=== PATIENT | female | born 1990 | race Caucasian/White ===

== ENCOUNTER 2019-03-30 06:06 | Inpatient (IN) | payer OTHER ==
[2019-05-30 11:37] LABS: HEMATOCRIT 38.2 % (36.0-47.0); MEAN CORPUSCULAR HEMOGLOBIN 28.3 pg (27.0-33.4); MEAN CORPUSCULAR HGB CONC 34.1 g/dL (32.0-36.0); MEAN CORPUSCULAR VOLUME 83 fl (80-97); PLATELET COUNT 187 10^3/uL (150-450); RED BLOOD COUNT 4.59 10^6/uL (3.72-5.28); WHITE BLOOD COUNT 10.4 10^3/uL (4.0-10.5)
[2019-05-30 11:51] LABS: APPEARANCE,URINE SLIGHTLY-CLOUDY; BILIRUBIN,URINE NEGATIVE (NEGATIVE); COLOR,URINE YELLOW; GLUCOSE, URINE NEGATIVE (NEGATIVE); KETONES,URINE NEGATIVE (NEGATIVE); LEUKOCYTE ESTERASE,URINE NEGATIVE (NEGATIVE); NITRITE,URINE NEGATIVE (NEGATIVE); PROTEIN,URINE NEGATIVE (NEGATIVE); URINE SPECIFIC GRAVITY 1.016; UROBILINOGEN,URINE NEGATIVE mg/dL (<2.0)
[2019-05-30 11:58] LABS: ABSOLUTE LYMPHOCYTES# (MANUAL) 1.5 10^3/uL (0.5-4.7); ABSOLUTE MONOCYTES # (MANUAL) 0.6 10^3/uL (0.1-1.4); BAND NEUTROPHILS % (MANUAL) 2 % (3-5); BASOPHILS % (MANUAL) 0 % (0-2); EOSINOPHILS % (MANUAL) 0 % (0-6); LYMPHOCYTES % (MANUAL) 12 % (13-45); METAMYELOCYTES % (MANUAL) 2 % (0-1); MONOCYTES % (MANUAL) 6 % (3-13); NUCLEATED RED BLOOD CELLS 1 /100 WBC (0); SEGMENTED NEUTROPHILS % (MAN) 76 % (42-78); TOTAL CELLS COUNTED 100
[2019-05-30 11:59] LABS: ANISOCYTOSIS SLIGHT; PLATELET COMMENT ADEQUATE; PLATELET GIANT PRESENT; PLATELET LARGE PRESENT; POLYCHROMASIA SLIGHT
[2019-05-30 12:13] LABS: URINE AMPHETAMINES SCREEN NEGATIVE; URINE BARBITURATES SCREEN NEGATIVE; URINE BENZODIAZEPINES SCREEN NEGATIVE; URINE COCAINE SCREEN NEGATIVE; URINE MARIJUANA (THC) SCREEN NEGATIVE; URINE METHADONE SCREEN NEGATIVE; URINE PHENCYCLIDINE SCREEN NEGATIVE
[2019-05-31] MEDS ORDERED: CEFAZOLIN SODIUM 2 GM in DEXTROSE 5%-WATER 100 ML IV PRN (05:00)
[2019-05-31] MEDS: LACTATED RINGERS 1000 ML IV PRN ×2 (06:19→15:09)
[2019-05-31] MEDS ORDERED: OXYTOCIN/NORMAL SALINE 40 UNIT/2,000 ML RTUINJ ONE (07:07)
[2019-05-31] MEDS ORDERED: FENTANYL CITRATE INJ/PF 100 MCG/2 ML AMPUL ONE (07:07)
[2019-05-31] MEDS ORDERED: CITRIC ACID/SODIUM CITRATE ORAL SOLN 15 ML UDCUP ONE (07:07)
[2019-05-31] MEDS ORDERED: PROPOFOL INJ 200 MG/20 ML VIAL IV ONE (07:07)
[2019-05-31] MEDS ORDERED: MIDAZOLAM 2 MG/2 ML INJ ONE (07:07)
[2019-05-31] MEDS ORDERED: OXYTOCIN 10 UNIT/ML VIAL ONE (07:07)
[2019-05-31] MEDS ORDERED: EPHEDRINE SULFATE INJ 50 MG/1 ML AMPULE ONE (07:08)
[2019-05-31] MEDS ORDERED: KETAMINE HCL INJ 500 MG/10 ML VIAL ONE (08:40)
[2019-05-31] MEDS ORDERED: MEASLES,MUMPS&RUBELLA VACC/PF 0.5 ML VIAL SUBCUT PRN (09:10)
[2019-05-31] MEDS ORDERED: SIMETHICONE 80 MG TAB.CHEW PO PRN (09:10)
[2019-05-31] MEDS ORDERED: ACETAMINOPHEN 325 MG TABLET PO PRN (09:10)
[2019-05-31] MEDS ORDERED: DIPH/PERTUSS(ACELL)/TETANUS VAC/PF 0.5 ML SYR (>=10YO) IM PRN (09:10)
[2019-05-31] MEDS ORDERED: OXYCODONE-ACETAMINOPHEN 5-325 MG TABLET PO PRN (09:10)
[2019-05-31] MEDS ORDERED: PROMETHAZINE HCL INJ 25 MG/1 ML VIAL IV PRN ×3 (09:10→09:24)
[2019-05-31] MEDS ORDERED: OXYTOCIN/NORMAL SALINE 20 UNIT/1,000 ML RTUINJ IV PRN (09:10)
--- NOTE | 2019-05-31 09:13 | PDOC DELIVERY SUMMARY ---
Delivery Summary - Maternal Hx : II Hx # Term Pregnancies: 1 DANIEL: 06/06/19 Gestational Age: 39.1 Ruptured Membranes: AROM Time of Rupture: 08:22 Fluids: Clear - Delivery Presentation: Vertex Support Person Present: Yes Location: OR : Scheduled Placenta: Within Normal Limits Delivery of Placenta Date: 05/31/19 Delivery of Placenta Time: 08:23 - Medications Type of Anesthesia:: Spinal - Assess and Care Baby 1 Delivery of Date: 05/31/19 Delivery of Time: 08:22 at 1 minute: 8 at 5 minutes: 9 Preprinted Number On Band: [id number] Skin to Skin: No [facility] Personnel Nursery RN: GREGOR FISH MD: BRITTANEY PEREIRA
--- NOTE | 2019-05-31 09:23 | Operative Report ---
Operative Report DATE OF SURGERY: 05/31/19 Operative Report: Repeat Section PREOPERATIVE DIAGNOSIS: Intrauterine at 39.1 wks EGA. History prior delivery x1 POSTOPERATIVE DIAGNOSIS: Same as above OPERATION: Repeat section SURGEON: BRITTANEY PEREIRA ANESTHESIA: Spinal COMPLICATIONS: None ESTIMATED BLOOD LOSS: 600ml QUANTITATIVE BLOOD LOSS: 600 INTRAOPERATIVE FINDINGS: Normal appearing uterus, bilateral fallopian tubes and ovaries. Small amount of scar tissue lower uterine segement with bladder. Clear amniotic fluid, large amount. PROCEDURE: IV fluids: per anesthesia record Urinary output: 150 cc Disposition: To recovery room in stable condition Description of procedure: The patient was taken to the operating room and spinal anesthesia was administered and found to be adequate. She was then placed on the OR table in th e supine position with a slight leftward tilt. Patient was prepped and draped in usual sterile fashion. Ancef 2 gms was given IV prior to the procedure for infection prophylaxis. Timeout was taken. A Pfannenstiel skin incision was then made approximately 3 cm above the pubic symphysis -at the level of prior scar and carried down to level the rectus fascia. The rectus fascia was then nicked in the midline with a scalpel and the fascial incision was extended laterally with use of curved Kothari scissors. The rectus fascia was then grasped with 2 Kocker clamps elevated and the underlying rectus muscle was dissected off both bluntly and sharply. Any bleeding controlled with cautery. The rectus muscles were then split in the midline and the peritoneum was entered. The peritoneal incision was then extended by manually stretching the peritoneum. The bladder blade was positioned. The bladder was adherent to the anterior lower uterine segment. Pick ups and metzenbaum scissors were used to dissect the bladder out of harms way. The bladder blade was repositioned. A scalpel was then used in the lower uterine for the hysterotomy, slowly until amniotomy was obtained a large amount of fluid was noted. The uterine incision was then manually stretched. The infant was noted to be in vertex postion. The head was elevated and brought to the hysterotomy incision. The head then delivered with minmal difficulty. The shoulders and the rest of the body followed immediately. The cord clamping was delayed for 30 seconds as infant was vigorous. The cord was then doubly clamped, cut and the infant was handed off to the nurse awaiting. Infant was crying prior to hand off. The placenta was manually delivered. Using a lap gauze the uterus was cleared of all clots and debris. . The uterus was then exteriorized and a bladder blade was repositioned. The uterine incision was then closed with 0 Chromic suture in a running locked fashion. A second layer of the same suture was used in a runn ing locked embricated fashion. The uterine incision was inspected and noted to be hemostatic. The posterior aspect of the uterus was then inspected and anatomy was seen as above. The uterus was returned to its normal anatomic position within the abdominal cavity. Warm saline irrigation was used to clear all clots and debris from the abdomen. The uterine incision was inspected once more and noted to remain hemostatic. The bladder blade was removed and the peritoneum was closed with 2-0 chromic in a running fashion. The rectus muscles were then reapproximated and the rectus fascia was closed with a #0 PDS in a running fashion. The subcutaneous tissue was then inspected and any bleeding was controlled with Bovie electrocautery. The subcutaneous tissue was then closed with 2-0 Plain Gut suture in a running fashion. The skin was then closed with 3-0 Monocryl in a running subcuticular fashion. The skin incision was then clean dried and Dermabond was applied over the skin incision. All instrument sponge and needle counts were correct x3 for the procedure the patient tolerated the procedure well. She will proceed to recovery room in stable condition
[2019-05-31] MEDS ORDERED: FENTANYL CITRATE INJ/PF 100 MCG/2 ML AMPUL IV PRN ×3 (09:24)
[2019-05-31] MEDS ORDERED: DIPHENHYDRAMINE HCL 50 MG/ML VIAL IV PRN (09:24)
[2019-05-31] MEDS ORDERED: MEPERIDINE HCL/PF INJ 25 MG/1 ML DISP.SYRIN IV PRN (09:24)
[2019-05-31] MEDS ORDERED: ONDANSETRON HCL INJ/PF 4 MG/2 ML SDV IV PRN (09:24)
[2019-05-31] MEDS ORDERED: HYDROMORPHONE HCL INJ/PF 2 MG/ML AMPULE IV PRN (09:25)
[2019-05-31] MEDS ORDERED: MEPERIDINE HCL/PF INJ 25 MG/1 ML DISP.SYRIN ONE (09:29)
[2019-05-31] MEDS ORDERED: DIPHENHYDRAMINE HCL 50 MG/ML VIAL ONE (09:33)
[2019-05-31] MEDS ORDERED: HYDROMORPHONE HCL INJ/PF 2 MG/ML AMPULE ONE (10:09)
[2019-05-31] MEDS: HYDROMORPHONE HCL INJ/PF 2 MG/ML AMPULE IV PRN ×2 (10:22→13:36)
[2019-05-31] MEDS ORDERED: KETOROLAC TROMETHAMINE 60 MG/2 ML SDV ONE (13:11)
[2019-05-31] MEDS ORDERED: ONDANSETRON HCL INJ/PF 4 MG/2 ML SDV ONE (13:11)
[2019-05-31] MEDS ORDERED: PHENYLEPHRINE HCL INJ/PF 10 MG/1 ML SDV ONE (13:11)
[2019-05-31] MEDS: OXYCODONE-ACETAMINOPHEN 5-325 MG TABLET PO PRN ×2 (15:32→23:40)
[2019-05-31] MEDS: DOCUSATE SODIUM 100 MG CAPSULE PO SCH (17:07)
[2019-05-31] MEDS: IBUPROFEN 800 MG TABLET PO SCH (21:11)
[2019-06-01] MEDS: OXYCODONE-ACETAMINOPHEN 5-325 MG TABLET PO PRN ×5 (04:03→21:42)
[2019-06-01] MEDS: IBUPROFEN 800 MG TABLET PO SCH ×3 (05:33→21:41)
[2019-06-01 07:17] LABS: HEMATOCRIT 30.7 % (36.0-47.0); MEAN CORPUSCULAR HEMOGLOBIN 28.6 pg (27.0-33.4); MEAN CORPUSCULAR HGB CONC 34.5 g/dL (32.0-36.0); MEAN CORPUSCULAR VOLUME 83 fl (80-97); PLATELET COUNT 162 10^3/uL (150-450); RED BLOOD COUNT 3.71 10^6/uL (3.72-5.28); RED CELL DISTRIBUTION WIDTH 14.4 % (11.5-14.0); WHITE BLOOD COUNT 13.7 10^3/uL (4.0-10.5)
[2019-06-01 07:21] LABS: HEMOGLOBIN 10.6 g/dL (12.0-15.5)
--- NOTE | 2019-06-01 08:57 | PDOC PROGRESS REPORT ---
Subjective-OB Progress Note for:: 06/01/19 Physical Exam (OB) Vital Signs: Temp Pulse Resp BP Pulse Ox 98.2 F 99 14 104/65 95 06/01/19 08:04 06/01/19 08:04 06/01/19 08:04 06/01/19 08:04 06/01/19 08:04 Intake & Output 05/31/19 06/01/19 06/02/19 06:59 06:59 06:59 Intake Total 883 Output Total 1800 Balance -917 Weight 80.286 kg - PIH/Pre-Eclampsia Clonus: Negative Headache: Absent Epigastric Pain: No Visual Changes: No - Dressing Removed: No - no dsg on open to air Incision: Well Approximated Closure Type: Surgical Glue - Lochia Lochia Amount: Scant < 10 ml Lochia Color: Rubra/Red - Abdomen Description: Soft Hernia Present: No Bowel Sounds: Normoactive Flatus Presence: Present Stool: No Fundal Description: Firm Fundal Height: u/u - u/2 Objective-Diagnostic Laboratory: 06/01/19 06:49 06/01/19 06:49 WBC 13.7 H RBC 3.71 L Hgb 10.6 L D Hct 30.7 L MCV 83 MCH 28.6 MCHC 34.5 RDW 14.4 H Plt Count 162
[2019-06-01] MEDS: DOCUSATE SODIUM 100 MG CAPSULE PO SCH ×2 (09:01→17:18)
[2019-06-01] MEDS: PRENATAL VITAMIN W DHA CAPSULE PO SCH (09:01)
[2019-06-01] MEDS ORDERED: DIPHENHYDRAMINE HCL 25 MG CAPSULE ONE (11:15)
[2019-06-01] MEDS ORDERED: DIPHENHYDRAMINE HCL 25 MG CAPSULE PO PRN (11:22)
[2019-06-02] MEDS: IBUPROFEN 800 MG TABLET PO SCH ×2 (05:05→13:13)
[2019-06-02] MEDS ORDERED: FAMOTIDINE 20 MG TABLET PO ONE (06:30)
[2019-06-02] MEDS: OXYCODONE-ACETAMINOPHEN 5-325 MG TABLET PO PRN (07:52)
--- NOTE | 2019-06-02 09:19 | PDOC PROGRESS REPORT ---
Subjective-OB Progress Note for:: 06/02/19 Subjective: Doing better, pain under control, ambulating, + gas, voiding, had BM, Physical Exam (OB) Vital Signs: Temp Pulse Resp BP Pulse Ox 98.3 F 87 16 109/63 97 06/02/19 07:35 06/02/19 07:35 06/02/19 07:35 06/02/19 07:35 06/02/19 07:35 Intake & Output 06/01/19 06/02/19 06/03/19 06:59 06:59 06:59 Intake Total 883 1470 Output Total 1800 Balance -917 1470 - PIH/Pre-Eclampsia DTR's: 1 + Clonus: Negative Headache: Absent Epigastric Pain: No Visual Changes: No - Dressing Removed: No - no dsg on open to air Incision: Well Approximated Closure Type: Surgical Glue - Lochia Lochia Amount: Scant < 10 ml Lochia Color: Rubra/Red - Abdomen Description: Soft, Round Hernia Present: No Fundal Description: Firm, Midline Fundal Height: u/u - u/2 Objective-Diagnostic Laboratory: 06/01/19 06:49 Assessment and Plan(PN) - Assessment and Plan (1) History of depression Is this a current diagnosis for this admission?: Yes (2) Delivery by elective caesarean section Is this a current diagnosis for this admission?: Yes - Time Spent with Patient Time with patient: Less than 15 minutes Medications reviewed and adjusted accordingly: Yes - Disposition Anticipated Discharge: Home Within: within 24 hours
--- NOTE | 2019-06-02 09:24 | PDOC DISCHARGE SUMMARY ---
Impression - Admit/DC Date/PCP Admission Date/Primary Care Provider: 05/31/19 04:51 Discharge Date: 06/02/19 - Discharge Diagnosis (1) History of depression Is this a current diagnosis for this admission?: Yes (2) Delivery by elective caesarean section Is this a current diagnosis for this admission?: Yes - Additional Information Resuscitation Status: Full Code Discharge Diet: As Tolerated, Regular Discharge Activity: No Lifting Over 10 Pounds, No Lifting/Push/Pulling, Pelvic Rest Referrals: MELVA FORTE MD [ACTIVE STAFF] - (pt to make appt 1 week) Prescriptions: Oxycodone HCl/Acetaminophen [Percocet 5-325 mg Tablet] 1 tab PO Q4HP PRN #20 tablet PRN Reason: Ibuprofen [Motrin 800 mg Tablet] 800 mg PO Q8 #30 tablet Home Medications: Esomeprazole Mag Trihydrate [Nexium] 40 mg PO DAILY 05/30/19 Prenat 115/Iron Fum/Folic/Dss [ 19 Tablet] 1 each PO DAILY 05/30/19 Ibuprofen [Motrin 800 mg Tablet] 800 mg PO Q8 #30 tablet 06/02/19 Oxycodone HCl/Acetaminophen [Percocet 5-325 mg Tablet] 1 tab PO Q4HP PRN #20 tablet 06/02/19 HPI Gestational Age: 39 Reason(s) for Admission: Ceasarean Section-Repeat Procedures: NST, Ultrasound Intrapartum Procedure(s): : Low Cervical, Transverse - baby home with pt Hospital Course Hospital Course: routine Results Laboratory Results: WBC 13.7 10^3/uL (4.0-10.5) H 06/01/19 06:49 RBC 3.71 10^6/uL (3.72-5.28) L 06/01/19 06:49 Hgb 10.6 g/dL (12.0-15.5) L D 06/01/19 06:49 Hct 30.7 % (36.0-47.0) L 06/01/19 06:49 MCV 83 fl (80-97) 06/01/19 06:49 MCH 28.6 pg (27.0-33.4) 06/01/19 06:49 MCHC 34.5 g/dL (32.0-36.0) 06/01/19 06:49 RDW 14.4 % (11.5-14.0) H 06/01/19 06:49 Plt Count 162 10^3/uL (150-450) 06/01/19 06:49 Lymph % (Auto) Not Reportable 05/30/19 10:24 [place] % (Auto) Not Reportable 05/30/19 10:24 Eos % (Auto) Not Reportable 05/30/19 10:24 Baso % (Auto) Not Reportable 05/30/19 10:24 Absolute Neuts (auto) Not Reportable 05/30/19 10:24 Absolute Lymphs (auto) Not Reportable 05/30/19 10:24 Absolute Monos (auto) Not Reportable 05/30/19 10:24 Absolute Eos (auto) Not Reportable 05/30/19 10:24 Absolute Basos (auto) Not Reportable 05/30/19 10:24 Total Counted 100 05/30/19 10:24 Seg Neutrophils % Not Reportable 05/30/19 10:24 Seg Neuts % (Manual) 76 % (42-78) 05/30/19 10:24 Band Neutrophils % 2 % (3-5) L 05/30/19 10:24 Lymphocytes % (Manual) 12 % (13-45) L 05/30/19 10:24 Atypical Lymphs % 2 % (0) 05/30/19 10:24 Monocytes % (Manual) 6 % (3-13) 05/30/19 10:24 Eosinophils % (Manual) 0 % (0-6) 05/30/19 10:24 Basophils % (Manual) 0 % (0-2) 05/30/19 10:24 Metamyelocytes % 2 % (0-1) H 05/30/19 10:24 Abs Neuts (Manual) 8.3 10^3/uL (1.7-8.2) H 05/30/19 10:24 Abs Lymphs (Manual) 1.5 10^3/uL (0.5-4.7) 05/30/19 10:24 Abs Monocytes (Manual) 0.6 10^3/uL (0.1-1.4) 05/30/19 10:24 Absolute Eos (Manual) 0.0 10^3/uL (0.0-0.6) 05/30/19 10:24 Abs Basophils (Manual) 0.0 10^3/uL (0.0-0.2) 05/30/19 10:24 Nucleated RBCs 1 /100 WBC (0) 05/30/19 10:24 Large Platelets PRESENT 05/30/19 10:24 Giant Platelets PRESENT 05/30/19 10:24 Platelet Comment ADEQUATE 05/30/19 10:24 Polychromasia SLIGHT 05/30/19 10:24 Anisocytosis SLIGHT 05/30/19 10:24 Urine Color YELLOW 05/30/19 10:17 Urine Appearance SLIGHTLY-CLOUDY 05/30/19 10:17 Urine pH 7.0 (5.0-9.0) 05/30/19 10:17 Ur Specific [place] 1.016 05/30/19 10:17 Urine Protein NEGATIVE mg/dL (NEGATIVE) 05/30/19 10:17 Urine Glucose (UA) NEGATIVE mg/dL (NEGATIVE) 05/30/19 10:17 Urine Ketones NEGATIVE mg/dL (NEGATIVE) 05/30/19 10:17 Urine Blood NEGATIVE (NEGATIVE) 05/30/19 10:17 Urine Nitrite NEGATIVE (NEGATIVE) 05/30/19 10:17 Urine Bilirubin NEGATIVE (NEGATIVE) 05/30/19 10:17 Urine Urobilinogen NEGATIVE mg/dL (<2.0) 05/30/19 10:17 Ur Leukocyte Esterase NEGATIVE (NEGATIVE) 05/30/19 10:17 Urine WBC (Auto) 2 /HPF 05/30/19 10:17 Urine RBC (Auto) 1 /HPF 05/30/19 10:17 Squamous Epi Cells Auto 4 /HPF 05/30/19 10:17 Urine Mucus (Auto) RARE /LPF 05/30/19 10:17 Urine Ascorbic Acid 20 (NEGATIVE) H 05/30/19 10:17 Urine Opiates Screen NEGATIVE 05/30/19 10:17 Urine Methadone Screen NEGATIVE 05/30/19 10:17 Ur Barbiturates Screen NEGATIVE 05/30/19 10:17 Ur Phencyclidine Scrn NEGATIVE 05/30/19 10:17 Ur Amphetamines Screen NEGATIVE 05/30/19 10:17 U Benzodiazepines Scrn NEGATIVE 05/30/19 10:17 Urine Cocaine Screen NEGATIVE 05/30/19 10:17 U Marijuana (THC) Screen NEGATIVE 05/30/19 10:17 Blood Type AB POSITIVE 05/30/19 10:24 Antibody Screen NEGATIVE 05/30/19 10:24 Plan Health Concerns: routine pp care Plan of Treatment: routine post c/s care, use inspirometer Goals: routine, no complications
[2019-06-02] MEDS: DOCUSATE SODIUM 100 MG CAPSULE PO SCH (09:56)
[2019-06-02] MEDS: PRENATAL VITAMIN W DHA CAPSULE PO SCH (09:56)
[2019-06-02 10:37] VITALS: BP 121/71
[2019-06-02] MEDS ORDERED: FAMOTIDINE 20 MG TABLET PO SCH (18:00)
== END 2019-06-02 14:30 | disposition home or self-care (01) | DRG 788 ==
LOC: 2S 05-31 04:51
PROVIDERS: ADMIT Obstetrics & Gynecology; ATTEND Obstetrics & Gynecology
PROC: 10D00Z1 Extraction of Products of Conception, Low, Open Approach (ICD-10-PCS; principal; 2019-05-31 07:45)
DX: O34.219 Maternal care for unspecified type scar from previous cesarean delivery (principal); N85.8 Other specified noninflammatory disorders of uterus; O34.211 Maternal care for low transverse scar from previous cesarean delivery; Z3A.39 39 weeks gestation of pregnancy; Z37.0 Single live birth
CPT/HCPCS: 1961; 36415; 59025; 80307; 81001; 85025; 85027; 86850; 86900; 86901; 94799; J0690; J1170; J1200; J1885; J2175; J2250; J2370; J2405; J2590; J2704; J3010; J3490; J7060; J7120